=== PATIENT | male | born 1975 | race Two or more races ===

== ENCOUNTER 2021-04-19 09:36 | Outpatient (CLI) | payer OTHER ==
[2021-04-19] MEDS ORDERED: OMEP-110 PO (10:14)
== END 2021-04-19 23:59 | disposition home or self-care (01) ==
LOC: STAR 09:36
PROVIDERS: ATTEND Otolaryngology
DX: Z20.822 Contact with and (suspected) exposure to COVID-19 (principal); R49.0 Dysphonia; D37.05 Neoplasm of uncertain behavior of pharynx
CPT/HCPCS: U0003; U0005

== ENCOUNTER 2021-04-25 07:23 | Day surgery (SDC) | payer OTHER ==
[~2021-04-25] VITALS: Ht 170.2 cm; Wt 101.0 kg
[~2021-04-25 07:23] MED LIST: EPINEPHRINE 1 MG/ML, 1ML ONE; FENTANYL PF 250 MCG/5ML ONE; LIDOCAINE 4%, 4 ML SYR/CANN TP ONE; LIDOCAINE-MPF 2% ,5ML ONE; LIDOCAINE/PF 1%, 30ML ONE; MIDAZOLAM 1 MG/ML, 2ML ONE; OMEP-110 PO; OXYMETAZOLINE NASAL SPRAY 0.05%,30ML ONE; PROPOFOL 10 MG/ML, 20ML ONE; SUCCINYLCHOLINE 20 MG/ML, 10ML ONE
[2021-04-25 07:46] VITALS: BP 116/70
[2021-04-25] MEDS ORDERED: CHLORHEXIDINE 15 ML UDC ONE (07:50)
[2021-04-25] MEDS ORDERED: LIDOCAINE-MPF 1%, 2ML ONE (07:50)
[2021-04-25] MEDS ORDERED: CHLORHEXIDINE 15 ML UDC PO ONE (08:00)
[2021-04-25] MEDS ORDERED: LIDOCAINE-MPF 1%, 2ML INFIL ONE (08:00)
[2021-04-25] MEDS ORDERED: LACTATED RINGERS 1,000 ML IV SCH (08:00)
[2021-04-25] MEDS ORDERED: IBUP-1223 PO (09:25)
[2021-04-25] MEDS ORDERED: ACET325T14 PO (09:25)
[2021-04-25] MEDS ORDERED: DEXAMETHASONE 4 MG/ML, 1ML ONE (09:31)
[2021-04-25] MEDS ORDERED: SUGAMMADEX 200 MG/2 ML IVPush ONE (09:31)
[2021-04-25] MEDS ORDERED: ONDANSETRON 2MG/ML, 2ML ONE (09:31)
[2021-04-25] MEDS ORDERED: ROCURONIUM 10 MG/ML,10ML ONE (09:31)
[2021-04-25] MEDS ORDERED: ONDANSETRON 2MG/ML, 2ML IVPush PRN (10:00)
[2021-04-25] MEDS ORDERED: PROMETHAZINE 12.5 MG SUPP PR PRN (10:00)
[2021-04-25] MEDS ORDERED: MEPERIDINE/PF 25MG/0.5ML IVPush PRN (10:00)
[2021-04-25] MEDS ORDERED: ACETAMINOPHEN 325 MG TABLET PO PRN (10:00)
[2021-04-25] MEDS ORDERED: HYDROmorphone 1 MG/ML, 1ML INJ IVPush PRN (10:00)
[2021-04-25] MEDS ORDERED: MIDAZOLAM 1 MG/ML, 2ML IV PRN (10:00)
[2021-04-25] MEDS ORDERED: FENTANYL PF 100 MCG/2ML IV PRN (10:00)
[2021-04-25] MEDS ORDERED: OXYcodone 5 MG/5 ML ORAL.SOL UDC PO PRN (10:00)
== END 2021-04-25 12:45 | disposition home or self-care (01) ==
LOC: OUT 07:23
PROVIDERS: ATTEND Otolaryngology
DX: J38.7 Other diseases of larynx (principal); D10.5 Benign neoplasm of other parts of oropharynx; K21.9 Gastro-esophageal reflux disease without esophagitis; F17.210 Nicotine dependence, cigarettes, uncomplicated; Z79.899 Other long term (current) drug therapy
CPT/HCPCS: 31536; 87070; 87075; 87102; 87205; 88305; 88312; J0171; J0330; J1100; J2250; J2405; J2704; J3010; J7120